=== PATIENT | male | born 1975 | race Caucasian/White ===

== ENCOUNTER 2016-10-19 10:00 | Inpatient (IN) | payer OTHER ==
--- NOTE | ~2016-10-19 | PA ---
Unit #: [id number] #: [id number] Patient: ETTA GAGE [id number] [place] [address] [id number] I MR#: [id number] NAME: ETTA GAGE. ROOM: P204 Age: 41 Sex: M Admission Date: 10/19/2016 : 1975 Date of Assessment: Attending Physician: Etta Dinero M.D. Admitting Physician: Etta Dinero M.D. Primary Care Physician: Generic Doctor Not In System PSYCHIATRIC ASSESSMENT DATE OF SERVICE 10/20/2016. LOCATION [facility] [address], room #204, bed #1. INFORMANTS The patient and chart, both seem reliable. CHIEF COMPLAINT "I've got to stop drinking." HISTORY OF PRESENT ILLNESS This is a 41-year-old white male, who comes in for essentially first time treatment for alcohol detox and dependency. The patient has been drinking for "many many years," but despite periods of sobriety he is noting that his drinking habits are escalating and he has been drinking since essentially last January. The patient reports at least a fifth a day everyday, if not half a gallon or more depending on if he is working or not. He is reporting to have auditory and visual hallucinations in terms of hearing voices and seeing things out of the corner of his eye when he is drinking or not anymore it seems and they have definitely been escalating over the last several weeks according to the patient. The patient seemed somewhat anxious and even mildly agitated during the conversation, but was pleasant in his demeanor, rest is fidgetiness in terms of description. He has never been through official treatment before other than being seen in the emergency room x1 and referred over to [facility]. He admits to occasional use of spice and marijuana, but denied anything else and even those are once or twice a month, nothing more routine. No history of any psychiatric care before beyond seeing a therapist in the past, but no psychiatrist and no psych medications. The patient is notably tremulous during our interview, diaphoretic, restless. Complains of intermittent sleep issues, upset stomach, and of course hallucinations as noted. There was some noted tactile hallucinations yesterday when he was being [facility], but he denied any of that at this time. Overall, the patient denied any SI. Simply he is concerned about his well being. PAST PSYCHIATRIC HISTORY He saw a therapist for about a year, that was over two years ago. No psychiatric care inpatient or directed out other than therapy. No history of medications. No history of SI, HI, or any psychosis. Unit #: [id number] #: [id number] Patient: ETTA GAGE FAMILY HISTORY Significant for bipolar disorder in his mother, possibly in his father, but his father also has heavy alcohol and marijuana dependency issues. SOCIAL HISTORY The patient is , no children. He has a year of college. He is gainfully employed. Support seems to be limited. MEDICAL HISTORY Nothing of consequence per the patient. MEDICATION HISTORY None per the patient. ALLERGIES No known allergies. SUBSTANCE ABUSE HISTORY As noted above. No previous treatment inpatient or out. No history of medical decompensation. No history of seizures per the patient. Unclear about true nature of underlying psychosis condition. MENTAL STATUS EXAMINATION General appearance, he is a moderately groomed white male, appears somewhat older than stated age, shaved head. Pleasant, good eye contact. Mild psychomotor agitation is noted. Diaphoretic. Tremor in both hands. Speech was clear and coherent. Mood was anxious with a congruent affect. Thought process and content were grossly organized and linear. No overt evidence of psychosis beyond some residual auditory hallucinations he reports earlier this morning, but nothing at the moment. Recent visual and questionable tactile as of yesterday. No SI. No HI. The patient's memory was grossly intact. Associations were normal. Cognitive function was at baseline. Alert and oriented x4. His insight and judgment are limited, but improving. ASSETS AND LIABILITIES Assets include gainfully employed and fairly functional. Liabilities include limited support. No previous chemical dependency treatment overtly and concerning psychosis related symptoms. ADMITTING DIAGNOSES Alcohol dependency with withdrawal, possibly related to psychosis versus delirium. PSYCHIATRIC PLAN To continue the patient's admission for safety and stabilization for ongoing issues with alcohol dependency and detox and related psychosis symptoms. The patient is placed on appropriate CIWA protocol and monitored accordingly. The patient also will be given 21 mg transdermal patch for nicotine considering he smokes a pack a day. Trazodone 100 mg at bedtime as needed for breakthrough sleep and a med consult for hypertension related symptoms as the patient's blood pressure has been elevated upon admission. Treatment goal will be resolution of all these symptoms in a safe controlled environment with a discharge planning most likely to include community resources and chemical dependency treatment and if not residential treatment if applicable. ESTIMATED LENGTH OF STAY Unit #: [id number] #: [id number] Patient: NATANAELRODRÍGUEZPamETTA C Approximately 5 days. Dictated by... Meenakshi Beasley/radha TD: 10/20/2016 15:27 JOB #: [id number] PSYCHIATRIC ASSESSMENT Page 1 of 1 X Etta Dinero MD X PSYCHIATRIC ASSESSMENT
--- NOTE | ~2016-10-19 | HP ---
Unit #: [id number] #: [id number] Patient: ETTA GAGE [id number] [place] [address] [id number] I MR#: [id number] NAME: ETTA GAGE. ROOM: P204 Age: 41 Sex: M Admission Date: 10/19/2016 : 1975 Attending Physician: Etta Dinero M.D. Admitting Physician: Etta Dinero M.D. Primary Care Physician: Generic Doctor Not In System HISTORY AND PHYSICAL HISTORY OF PRESENT ILLNESS Etta is a 41 year old admitted to [address] [place] [address] because of his abuse of alcohol. PAST MEDICAL HISTORY Long history of alcohol abuse. PAST SURGICAL HISTORY Nothing reported. ALLERGIES No known drug allergies. SOCIAL HISTORY Smokes one pack per day. Drinks a fifth of vodka on a daily basis. Has a history of illicit substance abuse to include IV heroin. FAMILY HISTORY Medically noncontributory. REVIEW OF SYSTEMS CONSTITUTIONAL: No fever or chills. HEENT: Denies any sore throat, ear pain or runny nose. CARDIOVASCULAR: Denies chest pain, irregular heart rhythm or palpitations. CHEST: Denies shortness of breath or cough. No hemoptysis. GASTROINTESTINAL: Denies nausea, vomiting, diarrhea or chronic constipation. ENDOCRINE: Denies history of increased thirst or urination. No recent significant weight loss or gain. GENITOURINARY: Denies dysuria, frequency, or hematuria. SKIN: Denies any rashes. HEMATOLOGIC: Denies history of increased bleeding or bruising. MUSCULOSKELETAL: Denies any hot, swollen joints. No generalized muscle pain. NEUROLOGIC: Denies problems with vision or speech. No frequent, severe headaches. No numbness, tingling or weakness in any extremities. Denies loss of bladder or bowel control. CURRENT MEDICATIONS Detox protocol PHYSICAL EXAMINATION Unit #: [id number] #: [id number] Patient: ETTA GAGE GENERAL: Alert, well-nourished, in no apparent distress. VITAL SIGNS: Blood pressure 160/112, heart rate 80, respirations 16, temperature 98.6. WEIGHT: 195 pounds. HEIGHT: 5'8". SKIN: Warm and dry without rash or lesion. HEENT: Normocephalic. TMs not viewed. Oral and nasal passages clear. Conjunctivae clear. Pupils equal, round and reactive to light and accommodation. Extraocular movements intact. NECK: Supple without lymphadenopathy or thyromegaly. HEART: Regular rate and rhythm without murmur. LUNGS: Clear. ABDOMEN: Soft, nontender. : Not done. EXTREMITIES: No evidence of cyanosis, clubbing or edema. Moves all extremities without focal deficit. NEUROLOGICAL: Grossly within normal limits. Cranial Nerves: II: Visual amaral are intact. III, IV AND : Extraocular movements are intact. Pupils are equal, round and reactive to light. V: Facial sensation is grossly normal. VII: Facial movements and expression are normal. VIII: Auditory acuity grossly intact. IX, X: Uvula is midline. Phonation is normal. XI: Patient shrugs shoulders and turns head normally. XII: Tongue protrudes in the midline. Sensory and Motor Function: Sensory and motor sensation is grossly normal. Motor: moves all extremities well. Coordination: Gait is normal. Deep Tendon Reflexes: Intact. IMPRESSION Psychiatric admission Psychiatric admission RECOMMENDATIONS PSYCHIATRIC: Per psychiatrist. MEDICAL: I see no contraindications to participating in facility's activities. MEDICAL PROGNOSIS Good. MEDICAL CONDITION Stable. Dictated by... Sharmaine Galvez P.A.-C. for Meenakshi Clarke/robin TD: 10/19/2016 20:55 JOB #: [id number] Unit #: [id number] #: [id number] Patient: ETTA GAGE HISTORY AND PHYSICAL Page 1 of 1 X Sharmaine Galvez HISTORY AND PHYSICAL
--- NOTE | ~2016-10-19 | DS ---
Unit #: [id number] #: [id number] Patient: ETTA GAGE [id number] [place] [address] [id number] I MR#: [id number] NAME: ETTA GAGE. ROOM: P204 Age: 41 Sex: M Admission Date: 10/19/2016 : 1975 Discharge Date: 10/21/2016 Attending Physician: Etta Dinero M.D. Primary Care Physician: Generic Doctor Not In System DISCHARGE SUMMARY REASON FOR ADMISSION Alcohol dependency as well as related psychosis from delirium. DIAGNOSTIC STUDIES PERTINENT LABORATORY DATA: The patient had routine blood work which included a CMP that showed elevated glucose of 162, BUN of 8, chloride of 99, AST of 71, alkaline phosphatase of 121, all of which in keeping with his alcohol use history. CBC performed was grossly within acceptable parameters. Hemoglobin was slightly elevated at 16.5 and MCV at 98.1, again not unexpected given his history. Urine toxicology was positive for benzodiazepines. Urinalysis was positive for 1+ leukocyte esterase, 0.2 urobilinogen, but no bacteria. No other tests performed. HOSPITAL COURSE The patient was admitted for safety and stabilization for ongoing issues of alcohol dependency as well as related psychosis from alcohol-induced delirium and/or withdrawal delirium, it was not quite certain. The patient was placed on appropriate detox protocol and tolerated it well. His "hallucinations of seeing things at home" quickly resolved after being admitted here on to the unit. He seemed fairly isolative to himself and showed rapid improvement so much so that on the date of discharge, even though he was still having some residual symptoms with anxiety, sleep issues, upset stomach, headaches, etc., he asked for discharge. As he was no longer having any active psychosis, he was not suicidal or homicidal and was fully alert and oriented. I felt the patient was appropriate to be released. The patient was to be given community resources, and he was to follow up with his primary care doctor concerning hypertension issues. The patient was seen by the nurse practitioner while here because of elevated blood pressure that seemed not directly related to his detox and was started on Norvasc 5 mg for that is what she responded well. In addition, the patient also had been given trazodone 100 mg at bedtime to help with sleep. Again, this he also tolerated very well and responded positively to. Again, at the time of discharge, the patient was felt appropriate to be released even though he was still having symptoms. He did not meet criteria for involuntary admission and could be further treated on an outpatient basis if he chose to do so. He was in agreement. DISCHARGE DIAGNOSIS Alcohol dependency with withdrawal-related delirium and hypertension. DISCHARGE INSTRUCTIONS The patient to be discharged home by bus with followup through community resources and his primary care doctor. Unit #: [id number] #: [id number] Patient: ETTA GAGE Courtney DISCHARGE MEDICATIONS 1. Norvasc 5 mg daily for hypertension. 2. Trazodone 100 mg at bedtime as needed for sleep. CONDITION AT DISCHARGE Improving. PROGNOSIS Poor given the patient's poor insight at being reluctant to complete treatment process inpatient. DIET Regular. ACTIVITY As tolerated, sobriety encouraged. Dictated by... Meenakshi Beasley/yosvany TD: 10/21/2016 14:41 JOB #: [id number] DISCHARGE SUMMARY Page 1 of 1 X Etta Dinero MD X DISCHARGE SUMMARY
--- NOTE | ~2016-10-19 | CO ---
Unit #: [id number] #: [id number] Patient: ETTA GAGE [id number] [place] [address] [id number] I MR#: [id number] NAME: ETTA GAGE. ROOM: P204 Age: 41 Sex: M Admission Date: 10/19/2016 : 1975 Attending Physician: Etta Dinero M.D. Primary Care Physician: Generic Doctor Not In System Consultation Date: 10/20/2016 CONSULTATION REPORT HISTORY OF PRESENT ILLNESS Staff report they have noted Etta to have elevated blood pressures since admission despite receiving large doses of Ativan. Blood pressures on admission were 140/101 and 159/112. This morning, blood pressure was 146/104. He also had elevated heart rates of 122 and 115. He denies history of hypertension. He is not having any chest pain or headache. No shortness of breath. No other complaints. PHYSICAL EXAMINATION CARDIAC: Regular rate and rhythm. No murmur, gallop, or rub. RESPIRATORY: Clear to auscultation bilaterally. ASSESSMENT AND PLAN Elevated blood pressures. The patient was started on Norvasc 5 mg p.o. daily and clonidine 0.1 mg p.o. q.8 hours p.r.n. for diastolic greater than 100. He received the first dose of Norvasc today and will continue to be monitored. Dictated by... Doris Hooker A.P.R.N. for Meenakshi Clarke/radha TD: 10/20/2016 23:03 JOB #: [id number] CONSULTATION REPORT Page 1 of 1 X DORIS CAMARENA APRN CONSULTATION REPORT
[2016-10-20 09:54] LABS: BASOPHIL% 0.5 % (0-2.5); EOSINOPHIL# 0.1 X10e3 (0-0.7); HEMATOCRIT 49.3 % (38.0-50.0); HEMOGLOBIN 16.5 gm/dL (13.0-16.0); LYMPHOCYTE# 1.9 X10e3 (1.0-3.5); LYMPHOCYTE% 27.5 % (17.0-45.0); MEAN CELL VOLUME 98.1 FL (83-96); MEAN CORPUSCULAR HEMOGLOBIN 32.8 PG (28-34); MEAN CORPUSCULAR HGB CONC 33.4 g/dL (30-36); MEAN PLATELET VOLUME 7.7 FL (6.5-11.5); MONOCYTE# 0.7 X10e3 (0-1.0); MONOCYTE% 9.7 % (3.0-12.0); NEUTROPHIL# 4.2 X10e3 (1.5-7.1); NEUTROPHIL% 60.3 % (40-75); PLATELET COUNT 184 X10e3 (140-420); RED BLOOD COUNT 5.02 X10e (3.90-5.60); RED CELL DISTRIBUTION WIDTH 13.1 % (11.0-15.5)
[2016-10-20 10:07] LABS: DIFF IND NO
[2016-10-20 10:16] LABS: CALCIUM SERUM 9.3 mg/dL (8.4-10.2); GLOM FILT RATE Estimated 92.4 mL/min (>60); POTASSIUM 4.3 mmol/L (3.5-5.1); PROTEIN TOTAL SERUM 6.9 g/dL (6.0-8.3)
[2016-10-20 12:37] LABS: URINE APPEARANCE CLEAR; URINE BILIRUBIN NEG (NEG); URINE BLOOD NEG (NEG); URINE COLOR DK YELLOW; URINE GLUCOSE NEG (NEG); URINE KETONE NEG (NEG); URINE LEUKOCYTE ESTERASE 1+ (NEG); URINE NITRATE NEG (NEG); URINE PH 6.5 (5-8); URINE PROTEIN NEG (NEG); URINE UROBILINOGEN 0.2 MG/DL (NEG)
[2016-10-20 12:40] LABS: URBCS1 AUWI 0-2 /[HPF] (0-2); URINE BACTERIA AUWI NEG (NEGATIVE); URINE SQUAMOUS EPITHELIAL CELL NONE SEEN /[HPF]
[2016-10-20 12:59] LABS: AMPHETAMINE NEG (NEG); BARBITURATES NEG (NEG); BENZODIAZEPINES POS (NEG); COCAINE NEG (NEG); MARIJUANA NEG (NEG); OPIATES NEG (NEG); TRICYCLIC ANTIDEPRESSANTS NEG (NEG); U METHADONE NEG (NEG)
== END 2016-10-21 14:40 | disposition home or self-care (01) | DRG 897 ==
LOC: P2S 12:42
PROVIDERS: Psychiatry & Neurology Psychiatry
PROC: HZ2ZZZZ Detoxification Services for Substance Abuse Treatment (ICD-10-PCS; principal; 2016-10-19)
DX: F10.231 Alcohol dependence with withdrawal delirium (principal); I10 Essential (primary) hypertension
CPT/HCPCS: 80053; 80307; 81003; 85025; J2550

== ENCOUNTER 2016-10-23 | Inpatient (IN) | payer OTHER ==
--- NOTE | ~2016-10-23 | DS ---
Unit #: [id number] #: [id number] Patient: ETTA GAGE [id number] [facility] [address] [place] [address] [id number] I MR#: [id number] NAME: ETTA GAGE. ROOM: P208 Age: 41 Sex: M Admission Date: 10/23/2016 : 1975 Discharge Date: 10/25/2016 Attending Physician: Raleigh Montalvo M.D. Primary Care Physician: Generic Doctor Not In System DISCHARGE SUMMARY REASON FOR ADMISSION Alcohol abuse, depression. DIAGNOSTIC STUDIES LABORATORY DATA: Urine drugs screen positive for benzodiazepine. HOSPITAL COURSE The patient was admitted to inpatient unit on October 23 and discharge on 10/25/2016. The patient was treated with chemical dependency group, expressive therapy, medication management, psychotherapy, psychoeducation, detox protocol, detox monitoring. The patient was responsive to treatment. Subsequently, the patient was discharged with a plan to follow up in outpatient program. DISCHARGE MEDICATION Remeron 15 mg at bedtime for mood symptom. DISCHARGE DIAGNOSES PSYCHIATRIC: Mood disorder not otherwise specified, F32.9. Alcohol use disorder, severe, F10.20 SECONDARY: Deferred. MEDICAL: Hepatitis C. STRESSORS: Psychosocial stressor. FOLLOWUP CARE The patient to follow up in outpatient clinic as per social worker clinical. CONDITION ON DISCHARGE The patient pleasant, cooperative. Denied any psychotic symptom or any suicidal ideation. PROGNOSIS Guarded. DIET AND ACTIVITY As tolerated. Dictated by... Raleigh oMntalvo M.D. SZC/bzg Unit #: [id number] #: [id number] Patient: ETTA GAGE TD: 10/26/2016 10:32 JOB #: [id number] DISCHARGE SUMMARY Page 1 of 1 X Raleigh Montalvo MD X DISCHARGE SUMMARY
--- NOTE | ~2016-10-23 | PA ---
Unit #: [id number] #: [id number] Patient: ETTA GAGE [id number] [facility] [address] [place] [address] [id number] I MR#: [id number] NAME: ETTA GAGE. ROOM: P208 Age: 41 Sex: M Admission Date: 10/23/2016 : 1975 Date of Assessment: Attending Physician: Raleigh Montalvo M.D. Admitting Physician: Raleigh Montalvo M.D. Primary Care Physician: Generic Doctor Not In System PSYCHIATRIC ASSESSMENT INFORMANTS The patient's reliability, fair; chart reliability, good. CHIEF COMPLAINT Alcohol abuse and depression. HISTORY OF PRESENT ILLNESS Mr. Mendoza is a 41-year-old male, presented with the above-mentioned complaint. The patient reported feeling sad, depressed, feeling of hopelessness. The patient reported using alcohol one-fifth to half a gallon of vodka. The patient was seen first this morning on 10/22/2016. The patient initially declined inpatient, then returned. The patient reported feeling sad, depressed. Reported having passive suicidal thoughts, feeling of hopelessness and worthlessness. The patient reported suicidal thoughts of injecting himself with heroin to kill himself. The patient stated that he would rather than continue with addiction. The patient's blood alcohol level was 0.194. The patient needed inpatient admission at this time for psychiatric stabilization. PAST PSYCHIATRIC HISTORY Remarkable for history of previous treatment in [place] for alcohol and depression in 2013 and 2006, and [facility]. FAMILY HISTORY AND SOCIAL HISTORY The patient has a poor support system, lives with a roommate. No history of any abuse. No history of any legal charges. History of depression, alcohol abuse, suicide attempt in father. MEDICAL HISTORY Remarkable for history of hepatitis C. MEDICATION HISTORY None. ALLERGIES No known drug allergies. SUBSTANCE ABUSE HISTORY The patient reported age of onset of tobacco 12, alcohol 13, marijuana 16, crack cocaine 18, LSD 25, opioid 31, amphetamine 18. The patient reported longest period of sobriety 1 year, last period of sobriety 05/2015. History of blackout, HIV, hepatitis, IV drug use. Currently, reporting Unit #: [id number] #: [id number] Patient: ETTA GAGE abdominal cramping, muscle cramping, diarrhea, headache, irritability, nervousness, poor appetite, night sweats, poor concentration, restlessness, sleep problem, tremor. REVIEW OF SYSTEMS Complete review of systems unremarkable. MENTAL STATUS EXAMINATION CONSTITUTIONAL: Measurement of vital signs; temperature 97.6, pulse 102, respirations 20, blood pressure 149/109; height 5 feet 8 inches, weight 185 pounds. GENERAL APPEARANCE: The patient dressed casually. The patient did not show any facial deformity. MUSCULOSKELETAL: Please see above. PSYCHIATRIC EXAMINATION Description of speech; regular rate, normal volume, normal articulation, coherent, and spontaneous. Description of thought process, goal directed. Description of association, intact. Description of abnormal psychotic thinking; the patient denied any hallucination or delusions, but having suicidal ideation, substance abuse. Description of the patient's judgment; concerning everyday activity, poor. Social situation, poor. Concerning psychiatric condition, poor. Complete mental status examination; oriented in time, place, and person. Recent and remote memory, fair. Attention span and concentration, fair. Language, able to name object and repeat phrases. Fund of knowledge, aware of current event and passive vocabulary intact. Mood and affect, sad and dysphoric. Insight and judgment, fair to poor. ASSETS AND LIABILITIES Assets; the patient articulate, able to take care of his ADL. Liability; history of depression, substance abuse. ADMITTING DIAGNOSES Psychiatric: Major depressive disorder, recurrent, severe, F33.2; alcohol use disorder, severe, F10.20. Secondary diagnosis: Deferred. Medical diagnosis: Hepatitis C. Stressors: Psychosocial stressor. PSYCHIATRIC PLAN AND TREATMENT GOAL 1. Advised to admit the patient on the inpatient unit. Provide safe, supportive, and structured environment. 2. Ordered labs; CBC, CMP, UA, and UDS. 3. Advised to continue with home medication. The patient to attend all the programming with group therapy, individual therapy, chemical dependency group, detox protocol, detox monitoring. Advised Remeron 15 mg at bedtime for mood symptom and sleep. Treatment goal to attain euthymic mood, gain insight into his problem, and learn coping skills. DISCHARGE PLAN Plan to stabilize the patient and consider followup in outpatient program. ESTIMATED LENGTH OF STAY Unit #: [id number] #: [id number] Patient: ETTA GAGE 3 to 5 days. Dictated by... Meenakshi Perdomo/radha TD: 10/25/2016 02:49 JOB #: [id number] PSYCHIATRIC ASSESSMENT Page 1 of 1 X Raleigh Montalvo MD PSYCHIATRIC ASSESSMENT
--- NOTE | ~2016-10-23 | HP ---
Unit #: [id number] #: [id number] Patient: ETTA GAGE [id number] [place] [address] [id number] I MR#: [id number] NAME: ETTA GAGE. ROOM: P208 Age: 41 Sex: M Admission Date: 10/23/2016 : 1975 Attending Physician: Raleigh Montalvo M.D. Admitting Physician: Raleigh Montalvo M.D. Primary Care Physician: Generic Doctor Not In System HISTORY AND PHYSICAL NOTE Etta is a 41 year old admitted to [address] [place] [address] because of his continued abuse of alcohol. He was just discharged from this facility. The patient was seen and H and P dated 10/19/2016 was reviewed. This is current. No changes. Please see H and P dated 10/19/2016. Dictated by... Sharmaine Galvez P.A.-C. for Meenakshi Clarke/robin TD: 10/23/2016 20:54 JOB #: [id number] HISTORY AND PHYSICAL Page 1 of 1 X Sharmaine Galvez HISTORY AND PHYSICAL
== END 2016-10-25 15:30 | disposition home or self-care (01) | DRG 885 ==
LOC: POF 08:53 → P2S 08:53
PROC: HZ2ZZZZ Detoxification Services for Substance Abuse Treatment (ICD-10-PCS; principal; 2016-10-23)
DX: F33.2 Major depressive disorder, recurrent severe without psychotic features (principal); R45.851 Suicidal ideations; F10.20 Alcohol dependence, uncomplicated; Z81.1 Family history of alcohol abuse and dependence; Z81.8 Family history of other mental and behavioral disorders